=== PATIENT | female | born 1975 | race Caucasian/White ===

== ENCOUNTER 2019-05-03 19:23 | Inpatient (IN) | payer OTHER ==
[~2019-05-03] VITALS: Ht 175.3 cm; Wt 76.7 kg
[2019-05-03 19:51] VITALS: BP 126/73
[2019-05-03 23:10] VITALS: BP 113/78
[2019-05-04] MEDS ORDERED: DOLOGEN CAPLET1 EACH PO (00:38)
[2019-05-04] MEDS ORDERED: PREMARIN0.45 MG (00:41)
--- NOTE | 2019-05-04 02:14 | NUR ---
PT ADMITTED TO ROOM 208 FROM [facility], VSS, PAIN CANTROLLED WITH ICE BAG AND PAIN MEDS, SPOUSE AT BEDSIDE OFFERING SUPPORT, PLAN TO CON'T WITH ANTIBIOTICS, SCDS PLACED, WILL CON'T TO MONITOR PERPPOC.
[2019-05-04 03:52] VITALS: BP 96/58
[2019-05-04 05:21] LABS: HEMATOCRIT 32.1 % (37.0-47.0); HEMOGLOBIN 10.7 gm/dL (12.0-15.0); MCH 30.8 pg (26.0-34.0); MCHC 33.3 g/dL (28.0-37.0); MCV 92.3 fL (80.0-100.0); RBC 3.47 mil/uL (4.20-5.00); RDW 12.2 % (10.5-14.5); WBC 16.8 thou/uL (4.0-11.0)
[2019-05-04 05:49] LABS: CALCIUM 8.6 mg/dL (8.5-10.1); CREATININE 0.8 mg/dL (0.6-1.0); POTASSIUM 3.3 mmol/L (3.5-5.1)
[2019-05-04 08:15] VITALS: BP 100/72
--- NOTE | 2019-05-04 12:43 | NUR ---
Chart reviewed and case discussed with the care team. Pt's spouse is here visiting this am. He is an employee here and is currently home on medical leave as well. He indicates that the pt was transfered from [facility]. She is being treated for pneumonia and has breast ca (currently in tx). The pt is up walking in the hallway with o2 today. Care team to work on weaning o2 as able. Likely dc to home with outpt f/u in 2-3 days. The pt lives at home with her spouse and they have 6 children ages 4 to 25. No cm interventions indicated at this time. Will remain available should dc needs arise. Support provided.
--- NOTE | 2019-05-04 15:42 | NUR ---
RECEIVED PT'S CARE AROUND 0735; PT. ON BED; AXO4; DURING ASSESSMENT C/O PAIN OVER CHEST; 02/01; PRN PAIN MEDICATION GIVEN WITH AM MEDICATIONS; VS WNL; PAIN RE-ASSESSMENT PT. ST. 01/02; CALM; REQUESTING TO REST; POTASSIUM LOW; PHYSICIAN NOTIFIED; ORDERS RECEIVED; C/O NAUSEA; PRN MEDICATION GIVEN; DURING RE-ASSESSSMENT PT. ST. NO DECREASE NAUSEA; C/O PAIN OVER CHEST; 02/01 PRN PAIN MEDICATION GIVEN; RE-ASSESMENT PT. RESTING WITH EYES CLOSED; AT 1540 PT. AWAKE; EDUCATED ABOUT PAIN MANAGEMENT; EDUCATED ABOUT DRINKING WATER; NOT HOLDING URINE; ST. UNDERSTANDING; ASSESSMENT CHARGED; FOLLOWING POC; WILL PASS ON REPORT.
[2019-05-04 16:07] VITALS: BP 126/76
[2019-05-04 18:47] LABS: CALCIUM 8.8 mg/dL (8.5-10.1); CREATININE 0.7 mg/dL (0.6-1.0); MAGNESIUM 2.1 mg/dL (1.8-2.4); POTASSIUM 3.7 mmol/L (3.5-5.1)
[2019-05-04 19:03] LABS: URINE BLOOD 3+ (Negative); URINE CLARITY CLEAR; URINE COLOR YELLOW; URINE GLUCOSE-RANDOM* NEGATIVE (Negative); URINE KETONES TRACE (Negative); URINE LEUKOCYTES-REFLEX TRACE (Negative); URINE PROTEIN (DIPSTICK) 3+ (Negative)
[2019-05-04 19:04] LABS: ICTOTEST (BILI CONFIRMATORY) Negative (Negative); URINE BILIRUBIN NEGATIVE (Negative); URINE NITRITE-REFLEX POSITIVE (Negative)
[2019-05-04 19:06] LABS: CASTS None Seen /LPF (None Seen); CRYSTALS None Seen /LPF (None Seen); SQUAMOUS 0-3 Few /LPF (0-3); URINE RBC >20 Many /HPF (0-2); URINE WBC-REFLEX 6-15 Few /HPF (0-5)
[2019-05-04 20:00] VITALS: BP 113/83
[2019-05-05 00:48] VITALS: BP 105/70
[2019-05-05 02:03] LABS: BE(vivo) 1.1 mmol/L (-2 to +3); HCO3 24.6 mmol/L (22.0-26.0); PCO2 35.4 mmHg (35.0-45.0); PO2 58.9 mmHg (80.0-100.0); sO2 92.1 % (92.0-98.0)
--- NOTE | 2019-05-05 03:01 | NUR ---
PT ALERT AND ORIENTED. PRESENTS WITH A MILD FEVER AT 1999. TYLENOL GIVEN. RECHECK TEMP 98.9. VOIDING TO BATHROOM. ANOTHER UA COLLECTED. COMPAZINE GIVEN FOR NAUSEA. PT APPEARED COMFORTABLE AT THIS TIME. AT AROUND 0100, PT WAS AWAKENED WITH A DRY COUGH AND FLUSHED SKILL. PT ALSO PRESENTED INCREASE WORK OF BREATHING , RESPIRATIONS 32. O2 SATS IN 80S WITH O2 4L NC. BUMPED O2 TO 6L NC, O2 SATS REMAINED IN 80S. RT NOTIFIED. NEBULIZER TREATMENT DONE. PT PUT ON , HIGH FLOW NC AT 10L. O2 SATS IN LOWER 90S. PT ALSO WAS HAVING FEVER AT THIS TIME, TEMP 100.5. NORCO GIVEN, RECHECK TEMP AFTER 1HR 98.9. WATCH CRYSTAL MOLDER ELIZABETH NOTIFIED ABOUT PT CHANGE IN CONDITION. ABGs ORDERED. PT WAS PUT ON COMFORT FLEX HIGH FLOW OXYGEN AT 35L/MIN, FIO2 40%. PT SATS IMPROVED TO SUSTAINED 94% OXYGEN. PT CURRENTLY APPEAR STABLE, STATES, "I FEEL BETTER". WILL CONTINUE MONITORING VITALS AND O2, SATS, TEMP AND FOLLOW PLAN OF CARE.
[2019-05-05 03:20] VITALS: BP 111/72
[2019-05-05 05:33] LABS: HEMATOCRIT 34.7 % (37.0-47.0); HEMOGLOBIN 11.5 gm/dL (12.0-15.0); MCH 30.7 pg (26.0-34.0); MCHC 33.1 g/dL (28.0-37.0); MCV 92.7 fL (80.0-100.0); RBC 3.75 mil/uL (4.20-5.00); RDW 12.5 % (10.5-14.5); WBC 11.7 thou/uL (4.0-11.0)
[2019-05-05 05:40] LABS: CALCIUM 8.2 mg/dL (8.5-10.1); CREATININE 0.7 mg/dL (0.6-1.0); POTASSIUM 4.4 mmol/L (3.5-5.1)
--- NOTE | 2019-05-05 07:22 | HC ---
[facility] [place] [address] CONSULTATION Name: NOEMY APARICIO Room #: 201-P [facility] IN M.R.#: [id number] Admission: 05/03/19 Attend Phys: Mikel Hernandez MD Discharge: Date of : 79 Report #: [id number] THIS REPORT FOR: //name// CC: Mikel RIOS MD [facility] physician/PCP Mario Alberto Willis MD DATE OF SERVICE: 05/04/2019 REQUESTING PHYSICIAN: Hadley Willis M.D. REASON FOR CONSULTATION: History of breast cancer. HISTORY OF PRESENT ILLNESS: The patient is a very pleasant 43-year-old female who I met this summer on 02/17. At that time, she was known to have a triple negative breast cancer that on imaging was thought to be around 2.3 cm. She subsequently underwent a lumpectomy and axillary node sampling, I believe, on about 03/07. The patient reports the final tumor is 1.8 cm and node negative. When I had previously seen her, she had declined interest in traditional adjuvant chemotherapy and radiation therapy and instead wanted to go with alternative therapy, saw a practitioner out in [place] and began high dose IV vitamin C about 2 weeks ago. The patient reports a febrile illness beginning last Wednesday or about 6 days ago. This was, I believe, at 101 or 102. On the next day, Wednesday, she had muscle cramping in many different joints and aches in muscles. Then on Wednesday or about 2 or 3 days ago, started having a cough, mostly nonproductive, but enough to cause some muscle pains. She has maybe felt like her chest was tight, does not quite have pleurisy, but does have some mild pain. No definite wheezing. She denies any headache other than related to coughing, any mouth sores, any trouble swallowing, any skin rash, any arm or leg swelling. She feels like her from her lumpectomy, her right breast is feeling much better. She does have a few sharp shooting pains. Also, has some discomfort in the axilla. No dysuria. At the outside hospital, they did a chest x-ray, does have some bilateral infiltrates. Her white count was elevated to about 12. A UA there had both squamous white cells and some bacteria. APTT was slightly elevated at 38.6. They began her on Zithromax, ceftriaxone, methylprednisolone and benzonatate. They also tested her influenza A and B tests, were negative. Also, note her chemistries were normal with normal liver function test. SOCIAL HISTORY: The patient is a homemaker. She has children at home that have all been healthy. Her is a physician's assistant boys track coach for cardiothoracic surgeon at [employer]. He has been healthy, though he did have sternal surgery [address] [address] CONSULTATION Name: NOEMY APARICIO Room #: 201-P ADM IN M.R.#: [id number] Admission: 05/03/19 Attend Phys: Mikel Hernandez MD Discharge: Date of : 79 Report #: [id number] repair about 1 or 2 weeks ago. PHYSICAL EXAMINATION: VITAL SIGNS: Height is 5 feet 9 inches or 175.3 cm, weight 170.9 pounds or 77.5 kilograms, O2 sat on rest is 92%, blood pressure 96/58, respirations 17; pulse 98, temperature 97.5 orally. She reports really no fever since yesterday. MOOD: She is alert and pleasant. NEUROLOGIC: Face is symmetrical. She is moving all extremities. LUNGS: Have some soft rhonchi, not really wheezes, just some central rhonchi, especially worse when she takes a deep breath. There may be a very slight rub, but it may be more of rhonchi sound. No wheezing. No stridor. HEART: Appears regular rate. LYMPHATICS: No enlarged lymph nodes. BREASTS: Implants in place. She has healed very well from her surgery in the circumareolar superior portion of the right breast. Axillary region also looks like it is healed very well. ABDOMEN: Soft. No masses, nontender. EXTREMITIES: Without clubbing, cyanosis or edema. She has red toe nail kazakh. LABORATORY DATA: Lab today shows a potassium of 3.3. Chemistries at other hospital normal, none here. White count 16.8; hemoglobin 10.7, at the other hospital was around 12; platelets 353. MEDICATIONS: Here at the hospital include azithromycin daily; ceftriaxone daily; guaifenesin 600 b.i.d.; lorazepam, I added 0.5 q.i.d. p.r.n., she was on this at home; ipratropium and albuterol 3 mL respiratory therapy q. 4; dextromethorphan 60 b.i.d. as needed; hydrocodone as needed; Tylenol as needed; MiraLax as needed; Zofran as needed. ASSESSMENT AND PLAN: 1. History of stage 1, triple negative, 1.8 cm, right-sided, lymph node negative, breast cancer, status post lumpectomy 03/07/2019; declined traditional adjuvant chemotherapy and radiation therapy with myself and Dr. Zuhair Rios, looks like she is healing very well. No signs of recurrence. She began nontraditional high dose IV vitamin C last week or 2 weeks ago. 2. Febrile illness with myalgias and cough, unclear etiology, may be slightly better, may be resolving viral or could be bacterial. Await blood cultures. We will repeat a UA to see if this one has bacteria and squamous cells. Continue Zithromax and ceftriaxone for now. 3. Cough. Continue guaifenesin and dextromethorphan. 4. Anxiety at home and muscle spasms here. We will add back lorazepam 0.5 q.i.d. p.r.n. We will follow with you. [facility] [address] [place] [address] CONSULTATION Name: APARICIONOEMY Room #: 201-P [facility] IN M.R.#: [id number] Admission: 05/03/19 Attend Phys: Mikel Hernandez MD Discharge: Date of : 79 Report #: [id number] 5. Question of urinary tract infection. I am wondering whether it might have been a bad catch as the patient was asymptomatic. <ELECTRONICALLY SIGNED> By: Rohan Khan MD 05/05/19 0722 [id number] 0103 Rohan Khan MD /nt
[2019-05-05 07:53] VITALS: BP 126/80
--- NOTE | 2019-05-05 08:03 | EKG ---
[address] [place] [address] ELECTROCARDIOGRAM REPORT Name: NOEMY APARICIO Room #: 201-P ADM IN M.R.#: [id number] Admission: 05/03/19 Attend Phys: Mikel Hernandez MD Discharge: Date of : 79 Report #: [id number] THIS REPORT FOR: //name// [facility] Test Date: 2019-05-04 Test Time: 19:36:36 Pat Name: NOEMY APARICIO Department: Room: 201 Gender: F [employer] Officer: Rony DIGGS : 1975 Requested By: Montana Ramirez Order Number: [id number] MD: Sahil Stevens Measurements Intervals [place] Rate: 100 P: 20 IN: 141 QRS: 35 QRSD: 87 T: -3 QT: 330 QTc: 426 Interpretive Statements Sinus tachycardia Borderline T abnormalities, anterior leads No previous ECG available for comparison Electronically Signed On 05-05-2019 8:03:11 CDT by Sahil Stevens [email or web address] <ELECTRONICALLY SIGNED> By: Sahil Stevens MD, [facility] 05/05/19 08 1936 35 Sahil Stevens MD, FACC /EPI
--- NOTE | 2019-05-05 11:44 | 2DMMODE ---
[facility] [place] [address] 2 D/M-MODE ECHOCARDIOGRAM Name: MARKUSNOEMY M Room #: 201-P [facility] IN .R.#: [id number] Admission: 05/03/19 Attend Phys: Mikel Hernandez MD Discharge: Date of : 79 Report #: [id number] THIS REPORT FOR: //name// APPROVED REPORT Study performed: 05/05/2019 10:51:26 EXAM: Comprehensive 2D, Doppler, and color-flow Echocardiogram Patient Location: Bedside Room #: 201 Status: routine BSA: 1.93 HR: 105 bpm BP: 126/80 mmHg Rhythm: Tachycardia Other Information Study Quality: Good Indications Congestive Heart Failure Dyspnea 2D Dimensions RVDd: 37.60 mm IVSd: 9.39 (7-11mm) LVOT Diam: 20.11 (18-24mm) LVDd: 51.34 mm PWd: 8.86 (7-11mm) Ascending Ao: 31.65 (22-36mm) LVDs: 37.92 (25-40mm) Aortic Root: 31.29 mm Volumes Left Atrial Volume (Systole) Single Plane 4CH: 38.06 mL Single Plane 2CH: 40.20 mL LA ESV Index: 24.00 mL/m2 Aortic Valve AoV Peak Ignacio.: 1.18 m/s AO Peak Gr.: 5.52 mmHg LVOT Max P.01 mmHg LVOT Max V: 0.87 m/s ROSI Vmax: 2.34 cm2 Mitral Valve E/A Ratio: 1.3 MV Decel. Time: 77.90 ms [facility] [address] [place] [address] 2 D/M-MODE ECHOCARDIOGRAM Name: NOEMY APARICIO Room #: 201-P [facility] IN ..#: [id number] Admission: 05/03/19 Attend Phys: Mikel Hernandez MD Discharge: Date of : 79 Report #: [id number] MV E Max Igancio.: 0.81 m/s MV A Ignacio.: 0.61 m/s MV PHT: 22.59 ms IVRT: 46.14 ms Pulmonary Valve PV Peak Ignacio.: 0.92 m/s PV Peak Gr.: 3.41 mmHg Pulmonary Vein P Vein S: 0.59 m/s P Vein D: 0.51 m/s P Vein S/D Ratio: 1.16 Tricuspid Valve TR Peak Ignacio.: 2.65 m/s RAP Estimate: 5.00 mmHg TR Peak Gr.: 28.13 mmHg PA Pressure: 33.00 mmHg Left Ventricle The left ventricle is normal size. There is normal LV segmental wall motion. There is normal left ventricular wall thickness. Left ventricular systolic function is normal. LVEF is 55%. The left ventricular diastolic function is normal. Right Ventricle The right ventricle is normal size. The right ventricular systolic function is normal. Atria The left atrium size is normal. The right atrium size is normal. Aortic Valve The aortic valve is normal in structure. No aortic regurgitation is present. There is no aortic valvular stenosis. Mitral Valve The mitral valve is normal in structure. Mild to moderate mitral regurgitation. Tricuspid Valve The tricuspid valve is normal in structure. Mild tricuspid regurgitation. Estimated PAP is 30-35mmHg. Pulmonic Valve The pulmonary valve is normal in structure. Trace pulmonic [facility] [address] [place] [address] 2 D/M-MODE ECHOCARDIOGRAM Name: MARKUSNOEMY M Room #: 201-P [facility] IN M.R.#: [id number] Admission: 05/03/19 Attend Phys: Mikel Hernandez MD Discharge: Date of : 79 Report #: [id number] regurgitation. Great Vessels The aortic root is normal in size. The ascending aorta is normal in size. IVC is normal in size and collapses >50% with inspiration. Pericardium There is no pericardial effusion. <Conclusion> The left ventricle is normal size. There is normal left ventricular wall thickness. Left ventricular systolic function is normal. The left ventricular diastolic function is normal. The right ventricle is normal size. The left atrium size is normal. The aortic valve is normal in structure. Mild to moderate mitral regurgitation. Mild tricuspid regurgitation. Estimated PAP is 30-35mmHg. <ELECTRONICALLY SIGNED> By: Galen Michael MD 05/05/19 1144 1144 1144 Galen Michael MD /INF
--- NOTE | 2019-05-05 11:53 | NUR ---
SW reviewed chart and spoke with attending physician. Pt remains on IV meds. No weekend discharge planned. Plan is for pt to discharge home when medically stable. MARIO is following to assist as needed with discharge planning.
--- NOTE | 2019-05-05 12:00 | NUR ---
AAOX4. CALM, PLEASANT. AT BEDSIDE. FEBRILE, TEMP 101.8. NORCO GIVEN (CONTAINS TYLENOL); TEMP DOWN TO 98.5. SR/ST PER TELE. UNPRODUCTIVE COUGH PERSISTS. WILL CONTINUE FREQUENT, CLOSE FOLLOWING.
[2019-05-05 15:19] VITALS: BP 117/70
--- NOTE | 2019-05-05 19:36 | NUR ---
ASSUMED CARE AT 1300, SHIFT ASSESSMENT DONE, MEDS GIVEN, VSS. REPORTED PAIN, PRN PAIN MEDS GIVEN, REPORTED ANXIETY, LORAZEPAM GIVEN. SNR ON TELE. ON HIGH FLOW NASAL CANUALR, 50% FiO2, ON 35L, SATURATING BETWEEN 90-98%. WILL CONTINUE TO ASSESS AND ASSIST WITH ADLs NEEDED.
[2019-05-05 21:04] VITALS: BP 119/68
[2019-05-06] VITALS (35 sets, daily range): BP systolic 90–128; BP diastolic 52–83
--- NOTE | 2019-05-06 05:25 | NUR ---
ASSUME CARE 1900. RECURRENT FEVERS AND INCREASE O2 DEMAND NOTED THROUGHT THE NIGHT. TOLERATED BIPAP FOR ABOUT 5-6 HOURS AND WENT BACK ON OPTIFLOW AT ABOUT 0400AM THIS MORNING. aT START OF SHIFT, PT WAS 50% FIO2 AT 35L WITH SATS AT MID 90s. OPTIFLOW INCREASED FROM 50% FIO2 TO 80% FIO2 WITH SATS BETWEEN 92-94 PERCENT AT 50L. OXYGEN DEMAND SEEMS TO BE INCREASING , HOWEVER, PATIENT SATS HAVE BEEN STABLE AT 92-93% AND IS RESTING MORE NOW WITH THE HELP OF ATIVAN. WILL CONTINUE TO MONITOR OXYGEN SATS FOR ANY DROP AND FOLLOW WITH POC
[2019-05-06 06:30] LABS: HEMATOCRIT 34.6 % (37.0-47.0); HEMOGLOBIN 11.5 gm/dL (12.0-15.0); MCH 30.7 pg (26.0-34.0); MCHC 33.3 g/dL (28.0-37.0); MCV 92.2 fL (80.0-100.0); RBC 3.76 mil/uL (4.20-5.00); RDW 12.3 % (10.5-14.5); WBC 10.8 thou/uL (4.0-11.0)
[2019-05-06 06:45] LABS: CALCIUM 8.6 mg/dL (8.5-10.1); CREATININE 0.6 mg/dL (0.6-1.0); POTASSIUM 3.7 mmol/L (3.5-5.1)
[2019-05-06 06:49] LABS: CALCIUM 8.3 mg/dL (8.5-10.1); CREATININE 0.6 mg/dL (0.6-1.0)
[2019-05-06 06:50] LABS: POTASSIUM 4.7 mmol/L (3.5-5.1)
--- NOTE | 2019-05-06 14:30 | NUR ---
OXYGENATION STILL AN ISSUE, ESPECIALLY WHEN PATIENT SLEEPS. SHE IS BECOMING EXHAUSTED. DOWN FOR CHEST CT TODAY. SR/ST PER TELE. TRANSFERRING TO ICU, REPORT CALLED TO JOVANY VILLASEÑOR.
--- NOTE | 2019-05-06 19:33 | NUR ---
1500 PT TRANSFERRED FROM CCU TO ICU RM 239, PT ON OPTIFLOW 50L AT 80%FIO2, PT ALERT AND AWKE, DISCUSSED BRONCHOSCOPY PLANS WITH , DR BROOKS ORDER TO SET UP EQUIPMENT FOR PROCEEDURE. 1700 PT GIVEN SEDATION ORDERS PER DR BROOKS, TOLERATED BRONCHOSCOPY FAIRLY WELL, A LOT OF COUGHING, SPO2 REMAIN STABLE DURING PROCEEDURE. PLACED ON BIPAP POST BRONCH, PRECIDEX ORDERS RECEIVED. 1745 PRECIDEX GTT STARTED, SEE CHARTING, PT MORE RELAXED, RR STILL IN 30'S, WILL MONITOR CLOSELY.
[2019-05-06 21:24] LABS: BE(vivo) 5.3 mmol/L (-2 to +3); HCO3 30.6 mmol/L (22.0-26.0); PCO2 47.2 mmHg (35.0-45.0); PO2 235.7 mmHg (80.0-100.0); pH 7.429 (7.360-7.450); sO2 99.5 % (92.0-98.0)
--- NOTE | 2019-05-06 23:22 | NUR ---
VAT CONSULTED FOR A CL PLACEMENT FOR RESP ARREST AND NEED FOR INTUBATION. PT SPOUSE CONSENTED AND IT WAS DISCUSSED WITH HER BEFORE SHE WAS INTUBATED. DIFFICULT INSERTION LINE MALPOSITIONED MULITPLE TIMES BUT FINAL POSITIONING WITH TIP AT THE CAJ PER CXR. TIME OUT WAS PERFORMED AT THE BS WITH RN, US GUIDED ATTEMPT X1 AFTER LINE MALPOSITIONED WITH OTW EXCHANGE. RT IJ ACCESSED WITH 5FRTLPOWERLINE TRIMMED AT 24CM AND INSERTED TO 18CM WITH A BRISK BLOOD RETURN. LINE SECURED WITH STATLOCK AND STERILE DSG PLACED. PT KIM WELL AND LINE RELEASED TO RN FOR USE PER PROTOCOL.
[2019-05-07] VITALS (87 sets, daily range): BP systolic 90–128; BP diastolic 58–87
[2019-05-07 05:34] LABS: HCO3 29.3 mmol/L (22.0-26.0); PCO2 58.2 mmHg (35.0-45.0); PO2 189.9 mmHg (80.0-100.0); sO2 99.2 % (92.0-98.0)
[2019-05-07 06:22] LABS: HEMATOCRIT 30.6 % (37.0-47.0); HEMOGLOBIN 10.3 gm/dL (12.0-15.0); MCH 31.5 pg (26.0-34.0); MCHC 33.8 g/dL (28.0-37.0); MCV 93.1 fL (80.0-100.0); RBC 3.28 mil/uL (4.20-5.00); RDW 12.5 % (10.5-14.5); WBC 11.4 thou/uL (4.0-11.0)
[2019-05-07 06:36] LABS: CALCIUM 6.8 mg/dL (8.5-10.1); CREATININE 0.5 mg/dL (0.6-1.0)
[2019-05-07 06:42] LABS: POTASSIUM 3.6 mmol/L (3.5-5.1)
--- NOTE | 2019-05-07 10:52 | NUR ---
CXR STATES RIJ TOO DEEP WITHDREW ADDITIONAL 3CM. REPEAT CXR ORDERED
--- NOTE | 2019-05-07 11:25 | NUR ---
REPEAT CXR CONFIRMS IJ AT CAJ.
[2019-05-07 12:57] LABS: ALBUMIN 1.8 g/dL (3.4-5.0); CALCIUM 7.2 mg/dL (8.5-10.1); CREATININE 0.5 mg/dL (0.6-1.0); PHOSPHORUS 4.7 mg/dL (2.5-4.9); TOTAL BILIRUBIN 0.3 mg/dL (<0.1-1.0); TOTAL PROTEIN 5.4 g/dL (6.4-8.2)
[2019-05-07 13:01] LABS: POTASSIUM 3.6 mmol/L (3.5-5.1)
--- NOTE | 2019-05-07 21:01 | NUR ---
PATIENT RESTING ON THE VENT TODAY, FIO2 DOWN TO 40% INITIALLY THIS AM AND PEEP DECREASED TO 8CM THIS AFTERNOON. SEDATIONS TAPPERED TO 50 MCG AND FENTENYL ADDED FOR PAIN MANAGEMENT. PATIENT COUGHING MORE AND REQUIRING MORE FREQUENT ETT SUCTIONING FOR MODERATE AMT OF THICK BEIGE SECRETIONS. SEDATION TITRATED UP FOR COMFORT AND FENTANYL ALSO REPEATED. TEMP INCREASED TO 100 AT 1600 ASSESSMENT AND TYLENOL GIVEN WITH REPEAT TEMP DECREASING. O2 SAT REMANINS 97 TO 98. MONITOR SINUS TACH 110 TO 120 WITH AGGITATION. FAMILY UPDATED TO THE POC AND REASSURANCE GIVEN.
[2019-05-08] VITALS (25 sets, daily range): BP systolic 96–162; BP diastolic 70–90
[2019-05-08 05:49] LABS: BE(vivo) 3.8 mmol/L (-2 to +3); HCO3 29.1 mmol/L (22.0-26.0); PCO2 46.7 mmHg (35.0-45.0); PO2 97.9 mmHg (80.0-100.0); pH 7.412 (7.360-7.450); sO2 97.5 % (92.0-98.0)
[2019-05-08 06:21] LABS: HEMATOCRIT 31.6 % (37.0-47.0); HEMOGLOBIN 10.4 gm/dL (12.0-15.0); MCH 30.8 pg (26.0-34.0); MCV 93.4 fL (80.0-100.0); RBC 3.38 mil/uL (4.20-5.00); RDW 12.4 % (10.5-14.5); WBC 22.1 thou/uL (4.0-11.0)
[2019-05-08 06:43] LABS: ALBUMIN 1.9 g/dL (3.4-5.0); CALCIUM 8.1 mg/dL (8.5-10.1); CREATININE 0.5 mg/dL (0.6-1.0); MAGNESIUM 2.4 mg/dL (1.8-2.4); PHOSPHORUS 3.3 mg/dL (2.5-4.9); POTASSIUM 3.8 mmol/L (3.5-5.1); TOTAL BILIRUBIN 0.1 mg/dL (<0.1-1.0); TOTAL PROTEIN 5.7 g/dL (6.4-8.2)
--- NOTE | 2019-05-08 07:37 | NUR ---
Pt's family was at the bedside at the start of the shift and were trying to provided cares, ie fluffing pillows, elevating BLE, and was even at one point trying to reposition the ETT/bite block in her mouth. RT came along and made further adjustments. Pt's family was advised to try and get some rest and did finally leave the room around midnight. Pt was bathed and her hair was combed out, her skin is intact.
--- NOTE | 2019-05-08 10:47 | NUR ---
Nutrition: Pt with high propofol needs providing 844 kcals from lipids. Use of Jevity 1.5 formula will overfeed pt. REC change to Vital HP at 45 mL/hr with current propofol demands.
--- NOTE | 2019-05-08 12:15 | NUR ---
PT REQUIRED INTUBATION 05/06 AND NOW IN ICU. HAS CHEST TUBE, TUBE FEEDING, SEDATION GTTS. ABLE TO FOLLOW COMMANDS. SPOUSE AT BEDSIDE THIS AM. PT WITH RECENT BREAST CANCER DX S/P LUMPECTOMY AND DR. LANDA FOLLOWING.
--- NOTE | 2019-05-08 16:08 | NUR ---
PATIENT INTERMITTENTLY RESTLESS WITH SEDATION IT WAS. DR. MELENDEZ CHANGED SEDATION TO ADD FENTANYL AND PRECEDEX AND TRY TO WEAN OFF PROPOFOL. SEE GTT TITRATIONS. PATIENT APPEARS MORE COMFORTABLE AND CALM AT THIS TIME. WHEN SEDATION LIGHTENED UP, SHE BECOMES TACHYPNEIC, TACHYCARDIC, WITH STRONG GAG/COUGH WHICH TRIGGERS THE VENTILATOR TO ALARM AND SHE BECOMES OUT OF SYNCH WITH THE VENTILATOR. FAMILY UPDATED ON PLAN OF CARE. PATIENT PROGRESSING TOWARDS PLAN OF CARE WITH VENTILATION.
--- NOTE | 2019-05-08 19:03 | HC ---
[facility] [place] [address] CONSULTATION Name: NOEMY APARICIO Room #: 239-P ADM IN M.R.#: [id number] Admission: 05/03/19 Attend Phys: Mikel Hernandez MD Discharge: Date of : 79 Report #: [id number] THIS REPORT FOR: //name// CC: Mikel Hernandez [facility] physician/PCP DATE OF SERVICE: 05/05/2019 INFECTIOUS DISEASE CONSULTATION REASON FOR CONSULTATION: I was asked to evaluate concerning bilateral pulmonary infiltrates in the setting of breast cancer. HISTORY OF PRESENT ILLNESS: The patient is a 43-year-old diagnosed with right breast cancer several months ago. She underwent lumpectomy. Lymph nodes were reported negative. She elected for no adjuvant chemotherapy. She is now on homeopathic vitamin C high-dose treatments. She has been on this for about a month. Plan on a 3-month course where she receives vitamin C twice a week. Last week, she developed fever, chills, myalgias, arthralgias, some nausea and profound fatigue. She had difficulty getting out of bed. She had some palpitations and became lightheaded, therefore went to the Emergency Room at [facility], initially treated for pneumonia. Due to insurance issues, she was transferred to [facility] for further care. She has had a cough productive of small amount of sputum without hemoptysis. No pleuritic chest pain. She has had progressive shortness of breath and yesterday required placement of high-flow oxygen. She has had pneumonia one time when she was a baby. Otherwise, no other chronic lung conditions, recurring bronchitis or asthma. She is a nonsmoker. Still has some tenderness to her right breast post-lumpectomy. No drainage from her incision. REVIEW OF SYSTEMS: Full 10-point review of systems was negative other than what has been described above. ALLERGIES: BUTORPHANOL. PAST MEDICAL HISTORY: As noted above, otherwise unremarkable. FAMILY HISTORY: Noncontributory. SOCIAL HISTORY: Nonsmoker, no significant alcohol intake. Has 6 children, youngest is 3 years old. She is a homemaker. No tuberculosis exposure. Children have been well, with no respiratory issues. MEDICATIONS: As noted on her MAR, including azithromycin and ceftriaxone in [facility] [address] [place] [address] CONSULTATION Name: NOEMY APARICIO Room #: 239-P [facility] IN .R.#: [id number] Admission: 05/03/19 Attend Phys: Mikel Hernandez MD Discharge: Date of : 79 Report #: [id number] addition to levalbuterol inhaler, acidophilus and guaifenesin. PHYSICAL EXAMINATION: VITAL SIGNS: Temperature 101.8 degrees earlier this morning, currently afebrile, pulse 99, respiratory rate 18, blood pressure 117/70. GENERAL: She was alert and cooperative and pleasant, in no acute distress. She was on high-flow nasal cannula oxygen. During my evaluation, there were no coughing episodes. SKIN: Without rash. No palpable adenopathy. EYES: Without scleral icterus. MOUTH: Without mucositis. NECK: Supple, with no thyromegaly or mass. LUNGS: Clear, with no adventitial sounds. HEART: Tachycardic and regular, without murmur, gallop or rub. No JVD of significance. ABDOMEN: Soft, nontender, no hepatosplenomegaly or mass. No CVA tenderness. GENITORECTAL: Not performed. EXTREMITIES: Without clubbing, cyanosis or edema. NEUROLOGIC: Cranial nerves intact. Strength in upper and lower extremities was normal. Sensation in upper and lower extremities normal. LABORATORY STUDIES: Echocardiogram, normal EF and valves. Legionella and strep pneumo antigens negative. Chest x-ray, bilateral interstitial changes without consolidation. Hemoglobin 11.5, WBC 11.7, platelet count 369,000. Sodium 139, potassium 4.4, bicarbonate 23, creatinine 0.7. Procalcitonin 0.2. Urinalysis, few wbc's, many rbc's, moderate bacteria, 3+ protein, 3+ blood. BNP 1581. Troponin negative. IMPRESSION: A 43-year-old with recent diagnosis of right breast cancer, undergoing IV vitamin C infusions, now with bilateral pulmonary infiltrates and respiratory failure requiring high flow oxygen. Etiology of the infiltrate is yet to be determined, whether this is a typical pneumonia versus congestive heart failure. I doubt allergic reaction to her vitamin C. I doubt lymphangitic spread at this point. She has no underlying chronic lung disease. It is notable that her BNP was elevated. Her echocardiogram, however, was within normal limits. RECOMMENDATIONS: We will continue with broad antibiotic coverage. Obtain viral respiratory panel and continue broad antibiotic coverage. Would agree with continued trial of diuresis. <ELECTRONICALLY SIGNED> By: Poncho Martínez MD 05/08/19 [id number] 0704 Poncho Martínez MD /nt
--- NOTE | 2019-05-08 19:27 | NUR ---
PATIENT MORE FREQUENT COUGH TONIGHT. PINK FROTHY SPUTUM NOW PRESENT PER RT REPORT. VOLUME STATUS NOTED TO DR. MELENDEZ. ORDER RECEIVED FOR LASIX IV AND DECREASE MAINTANENCE IV FLUID.
[2019-05-09] VITALS (24 sets, daily range): BP systolic 117–160; BP diastolic 67–90
[2019-05-09 05:53] LABS: CALCIUM 8.1 mg/dL (8.5-10.1); CREATININE 0.7 mg/dL (0.6-1.0); MAGNESIUM 2.5 mg/dL (1.8-2.4); PHOSPHORUS 3.9 mg/dL (2.5-4.9)
--- NOTE | 2019-05-09 08:09 | NUR ---
PATIENT ON MODERATE SEDATION, PLAN TO WEAN OF PROPOFOL DUE TO INCREASED TRYGLICERIDES. PROPOFOL PAUSED AT 0300 FOR 5 MINUTES, PATIENT DID NOT TOLERATE WELL, LEANING UP OFF THE BED AND IN DISTRESS. PROPOFOL RESTARTED AND PATIENT RESTED COMFORTABLY. PLAN TO ATTEMPT WEANING DURING DAY SHIFT PER RN. SPOKE WITH DR. LANDA, NO CURRENT PLAN FROM HIS STANDPOINT. PLAN OF CARE DISCUSSED WITH FAMILY OVER NIGHT, VERBALIZED UNDERSTANDING. NO SIGNS OF ACUTE DISTRESS NOTED AT THIS TIME. WILL CONTINUE TO MONITOR.
[2019-05-09 11:04] LABS: BE(vivo) 8.6 mmol/L (-2 to +3); PCO2 50.6 mmHg (35.0-45.0); pH 7.445 (7.360-7.450); sO2 98.6 % (92.0-98.0)
[2019-05-09 16:49] LABS: BE(vivo) 8.2 mmol/L (-2 to +3); HCO3 32.9 mmol/L (22.0-26.0); PCO2 46.2 mmHg (35.0-45.0); PO2 97.7 mmHg (80.0-100.0); sO2 97.7 % (92.0-98.0)
--- NOTE | 2019-05-09 19:51 | NUR ---
ASSUMED CARE @ 0700 05/09/19, FLUIDS CHANGED PER SODIUM LEVELS, PEEP ADJUSTED PER DR MELENDEZ, ABG DRAWN AFTER, NO CRITICALS NOTED. FAMILY AT THE BEDSIDE DURING THIS SHIFT. PLAN OF CARE- CONT TO MONITOR.
[2019-05-10] VITALS (24 sets, daily range): BP systolic 88–158; BP diastolic 52–91
[2019-05-10 04:16] LABS: CALCIUM 8.1 mg/dL (8.5-10.1); CREATININE 0.6 mg/dL (0.6-1.0); MAGNESIUM 2.3 mg/dL (1.8-2.4); PHOSPHORUS 3.5 mg/dL (2.5-4.9); POTASSIUM 3.5 mmol/L (3.5-5.1)
[2019-05-10 04:57] LABS: HEMATOCRIT 34.9 % (37.0-47.0); HEMOGLOBIN 11.3 gm/dL (12.0-15.0); MCH 29.9 pg (26.0-34.0); MCHC 32.4 g/dL (28.0-37.0); MCV 92.2 fL (80.0-100.0); RBC 3.78 mil/uL (4.20-5.00); RDW 12.1 % (10.5-14.5); WBC 17.2 thou/uL (4.0-11.0)
--- NOTE | 2019-05-10 06:52 | NUR ---
PATIENT REMAINS INTUBATED AND SEDATED WITH PRECEDEX, FENTANYL, AND VERSED. FAMILY UPDATED ON PLAN OF CARE. NO ACUTE EVENTS OCCURRED DURING THIS SHIFT AND HOURLY ROUNDING COMPLETED. VS REMAINED STABLE.
[2019-05-10 15:11] LABS: BE(vivo) 7.9 mmol/L (-2 to +3); HCO3 31.4 mmol/L (22.0-26.0); PCO2 39.8 mmHg (35.0-45.0); PO2 96.2 mmHg (80.0-100.0); pH 7.515 (7.360-7.450); sO2 97.9 % (92.0-98.0)
--- NOTE | 2019-05-10 17:15 | NUR ---
ASSUMED CARE @ 0700 05/10/19, PT ABLE TO TOLERATE CPAP FOR 2 HRS 30 MINS, PT EXTUBATED 1550, OG AND RESTRAINTS DC'D AT THIS TIME, PT PLACED ON FACE- SHIELD 50%, VSS. BEAN AT BEDSIDE, WILL FOLLOW CARE-PLAN.
--- NOTE | 2019-05-10 22:34 | NUR ---
1929 STARTED THE 500ML BOLUS ORDERED FOR LACTATE OF 3.26. WILL RECHECK LACTIC ACID LEVEL UPON COMPLETION. 2233 RECEIVED LACTIC ACID LEVEL TEST RESULTS. NOTIFIED DR. MELENDEZ THAT THE LACTIC LEVEL IS NOW 3.5. DR. MELENDEZ STATED TO RECHECK IT WITH MORNING LABS.
[2019-05-11] VITALS (21 sets, daily range): BP systolic 106–156; BP diastolic 58–95
[2019-05-11 06:30] LABS: CALCIUM 7.9 mg/dL (8.5-10.1); CREATININE 0.7 mg/dL (0.6-1.0); MAGNESIUM 2.3 mg/dL (1.8-2.4); PHOSPHORUS 2.9 mg/dL (2.5-4.9)
[2019-05-11 06:35] LABS: POTASSIUM 2.7 mmol/L (3.5-5.1)
--- NOTE | 2019-05-11 10:03 | NUR ---
PT UP TO CHAIR WITH ASSISTX1, ALL IVS AND TUBES INTACT AFTER TRANSFER. OXYGEN SATURATION REMAINED STABLE, NO COMPLAINTS OF PAIN. TOLERATED ACTIVITY WELL.
[2019-05-11 19:07] LABS: HISTOPLASMA MYCELIAL-ID Negative (Negative)
--- NOTE | 2019-05-11 19:19 | NUR ---
PT A/OX4, VITAL SIGNS REMAINED STABLE, NO COMPLAINTS OF PAIN, FAMILY AT BEDSIDE, BOTH PT AND FAMILY ARE SATISFIED WITH PT PROGRESS. NO NEW QUESTIONS AT THIS TIME. AL OKAY PT TO DOWNGRADE TO CCU STATUS. WILL MONITOR.
[2019-05-12] VITALS (12 sets, daily range): BP systolic 114–152; BP diastolic 68–89
--- NOTE | 2019-05-12 15:59 | NUR ---
EXTUBATED 05/10 AND NOW ON ROOM AIR/2L NC. CHEST TUBE DC 05/11. NOW CC TELE LEVEL OF CARE. POSSIBLE DC HOME THIS WEEKEND.
[2019-05-13] VITALS (8 sets, daily range): BP systolic 104–125; BP diastolic 69–83
[2019-05-13 06:52] LABS: HEMATOCRIT 38.2 % (37.0-47.0); HEMOGLOBIN 12.4 gm/dL (12.0-15.0); MCH 29.8 pg (26.0-34.0); MCHC 32.5 g/dL (28.0-37.0); MCV 91.7 fL (80.0-100.0); RBC 4.17 mil/uL (4.20-5.00); RDW 12.3 % (10.5-14.5); WBC 31.5 thou/uL (4.0-11.0)
[2019-05-13 07:12] LABS: CALCIUM 8.3 mg/dL (8.5-10.1); CREATININE 0.7 mg/dL (0.6-1.0); POTASSIUM 4.1 mmol/L (3.5-5.1)
[2019-05-13] MEDS ORDERED: COLESTID1 GM PO (14:35)
[2019-05-13] MEDS ORDERED: HYDROCODON-ACE1 EAC7 PO (14:36)
[2019-05-13] MEDS ORDERED: TRAZODONE HCL50 MG PO (14:37)
[2019-05-13] MEDS ORDERED: ROBITUSSIN100 MG/53 PO (14:38)
[2019-05-13] MEDS ORDERED: PULMICORT0.5 MG/21 INH (14:38)
[2019-05-13] MEDS ORDERED: FLORANEX GRANU1 EACH PO (14:39)
[2019-05-13] MEDS ORDERED: PREDNISONE 20 M20 MG PO (14:41)
--- NOTE | 2019-05-16 13:07 | PATH ---
[facility] [place] [address] PATHOLOGY RPT PROCEDURE Name: NOEMY APARICIO Room #: 250-P [facility] IN M.R.#: [id number] Admission: 05/03/19 Date of : 79 Discharge: 05/13/19 Report #: [id number] Path Case #: [id number] Note [facility] Accession Number: [id number] TESTS RESULT FLAG UNITS REF RANGE LAB Clinician Provided Cytology Information No. of containers..01 Other (Miscellaneous) Source: RUL BAL DIAGNOSIS: 02 RUL BAL NEGATIVE FOR MALIGNANT EPITHELIAL CELLS. REACTIVE BRONCHIAL CELLS ARE PRESENT. PULMONARY MACROPHAGES (DUST CELLS) ARE PRESENT. PAS SPECIAL STAIN SHOWS NO DEFINITE AMORPHOUS MATERIAL, SEE COMMENT. Comment: Large amorphous globules positve for PAS stain are not identified. Please note specimen may not be eligibility services representative. Histologic examination of a wedge resection may be a more sensitive test if clinically indicated. Clinical correlation is required. Pathologist ICD10: 02 J18.9 Signed out by: Padma Cook MD, Pathologist NPI- [id number] Performed by: Thelma Burgess, Supervisor [employer] ([employer]) Marcell Mccullough, Supervisor [employer] ([employer]) Gross description: 01 5ML, PINK, CLOUDY /LCS 07/25/1840 0000 Local FLAG LEGEND: L-Low Normal,H-High Normal,LL-Alert Low,HH-Alert High <-Panic Low,>-Panic High,A-Abnormal,AA-Critical Abnormal Performed at: 01 [facility] [address] [place] [address] [address] [place] [address] Ash Murcia MD, [address] [address] Padma Cook MD, Specimen Comment: A courtesy copy of this report has been sent to Specimen Comment: [phone]. Specimen Comment: Report sent to [address] [address] PATHOLOGY RPT PROCEDURE Name: MARKUSNOEMY Rony Room #: 250-P [facility] IN M.R.#: [id number] Admission: 05/03/19 Date of : 79 Discharge: 05/13/19 Report #: [id number] Path Case #: [id number] Specimen Comment: A duplicate report has been generated due to demographic updates. Performed at: 01 [facility] [place] [address], [place], [place] [id number] MD Ash Murcia MD Phone: [phone]
== END 2019-05-13 16:25 | disposition home or self-care (01) | DRG 208 ==
LOC: 2N 19:23 → ICU 05-06 15:02
PROVIDERS: Hospitalist; Internal Medicine Hematology & Oncology; Internal Medicine Pulmonary Disease; Nurse Practitioner Family; Pediatrics; Specialist; ADMIT Hospitalist
PROC: 5A1945Z Respiratory Ventilation, 24-96 Consecutive Hours (ICD-10-PCS; principal; 2019-05-06)
PROC: 5A09357 Assistance with Respiratory Ventilation, Less than 24 Consecutive Hours, Continuous Positive Airway Pressure (ICD-10-PCS; 2019-05-06)
PROC: 0BH17EZ Insertion of Endotracheal Airway into Trachea, Via Natural or Artificial Opening (ICD-10-PCS; 2019-05-06)
PROC: 02HV33Z Insertion of Infusion Device into Superior Vena Cava, Percutaneous Approach (ICD-10-PCS; 2019-05-06)
PROC: B548ZZA Ultrasonography of Superior Vena Cava, Guidance (ICD-10-PCS; 2019-05-06)
PROC: 0B9C8ZX Drainage of Right Upper Lung Lobe, Via Natural or Artificial Opening Endoscopic, Diagnostic (ICD-10-PCS; 2019-05-06)
PROC: 0W9930Z Drainage of Right Pleural Cavity with Drainage Device, Percutaneous Approach (ICD-10-PCS; 2019-05-07)
DX: J18.9 Pneumonia, unspecified organism (principal); J96.01 Acute respiratory failure with hypoxia; N39.0 Urinary tract infection, site not specified; J93.9 Pneumothorax, unspecified; E46 Unspecified protein-calorie malnutrition; F41.9 Anxiety disorder, unspecified; D72.829 Elevated white blood cell count, unspecified; T38.0X5A Adverse effect of glucocorticoids and synthetic analogues, initial encounter; Y92.89 Other specified places as the place of occurrence of the external cause; Z88.8 Allergy status to other drugs, medicaments and biological substances; Z85.3 Personal history of malignant neoplasm of breast; Z68.24 Body mass index [BMI] 24.0-24.9, adult; Z23 Encounter for immunization
CPT/HCPCS: 10078; 10081; 10203; 10797

== ENCOUNTER → 2019-05-19 | Outpatient (CLI) | payer OTHER ==
[~2019-05-19] MED LIST: COLESTID1 GM PO; DOLOGEN CAPLET1 EACH PO; FLORANEX GRANU1 EACH PO; HYDROCODON-ACE1 EAC7 PO; PREDNISONE 20 M20 MG PO; PREMARIN0.45 MG; PULMICORT0.5 MG/21 INH; ROBITUSSIN100 MG/53 PO; TRAZODONE HCL50 MG PO
== END ==
LOC: RAD 09:52
DX: R91.8 Other nonspecific abnormal finding of lung field (principal)

== ENCOUNTER → 2019-08-08 | Outpatient (CLI) | payer OTHER | LOC: RAD 10:05 | DX: S27.309A Unspecified injury of lung, unspecified, initial encounter (principal); X58.XXXA Exposure to other specified factors, initial encounter; Y93.89 Activity, other specified; Y92.89 Other specified places as the place of occurrence of the external cause; Y99.8 Other external cause status ==

== ENCOUNTER → 2019-10-27 | Outpatient (CLI) | payer OTHER | LOC: MRI 09:49 | DX: C50.411 Malignant neoplasm of upper-outer quadrant of right female breast (principal) ==

== ENCOUNTER → 2019-11-22 | Outpatient (CLI) | payer OTHER | LOC: MRI 09:05 | DX: C50.411 Malignant neoplasm of upper-outer quadrant of right female breast (principal); N64.89 Other specified disorders of breast ==

== ENCOUNTER 2020-04-22 15:22 | Emergency (ER) | payer OTHER ==
[~2020-04-22] VITALS: Ht 175.3 cm; Wt 81.7 kg
--- NOTE | 2020-04-22 16:19 | EKG ---
[facility] [place] [address] ELECTROCARDIOGRAM REPORT Name: NOEMY APARICIO Room #: PRE [facility]..#: [id number] Admission: Attend Phys: Discharge: Date of : 79 Report #: [id number] THIS REPORT FOR: cc: SADIE Menjivar family physician/PCP SADIE Menjivar family physician/PCP James Menjivar MD [facility] ~ THIS REPORT FOR: //name// [facility] ED Test Date: 2020-04-22 Test Time: 15:32:39 Pat Name: NOEMY APARICIO Department: Room: Gender: F Milling Machinist: CHUCK : 1975 Requested By: Kai Nunn Order Number: [id number] MD: James Menjivar Measurements Intervals [place] Rate: 81 P: 40 MD: 142 QRS: 35 QRSD: 81 T: 10 QT: 380 QTc: 441 Interpretive Statements Sinus rhythm Borderline T abnormalities, anterior leads Compared to ECG 05/04/2019 19:36:36 Sinus tachycardia no longer present T-wave abnormality still present Electronically Signed On 04-22-2020 16:19:05 CDT by James Menjivar [email or web address] <ELECTRONICALLY SIGNED> By: James Menjivar MD, FACC 04/22/20 0019 1532 153 James Menjivar MD, [facility] /EPI
[2020-04-22 16:58] LABS: ABSOLUTE NEUTROPHILS 5.7 thou/uL (1.4-8.2); BASOPHILS 0.5 % (0.0-2.0); EOSINOPHILS 1.1 % (0.0-3.0); HEMATOCRIT 38.4 % (37.0-47.0); HEMOGLOBIN 13.1 gm/dL (12.0-15.0); LYMPHOCYTES 25.2 % (24.0-44.0); MCH 30.7 pg (26.0-34.0); MCHC 34.2 g/dL (28.0-37.0); MCV 89.9 fL (80.0-100.0); MONOCYTES 6.1 % (1.0-8.0); PLATELET COUNT 318 thou/uL (150-400); POLYS 67.1 % (36.0-66.0); RBC 4.27 mil/uL (4.20-5.00); RDW 12.2 % (10.5-14.5); WBC 8.4 thou/uL (4.0-11.0)
[2020-04-22] MEDS ORDERED: DIAZEPAM 10 MG10 M2 PO (17:03)
[2020-04-22 17:12] LABS: ANION GAP 14 mmol/L (7-16); BUN 10 mg/dL (7-18); CALCIUM 8.5 mg/dL (8.5-10.1); CHLORIDE 107 mmol/L (98-107); CO2 21 mmol/L (21-32); CREATININE 0.7 mg/dL (0.6-1.0); GLUCOSE 97 mg/dL (74-106); POTASSIUM 3.2 mmol/L (3.5-5.1); SODIUM 142 mmol/L (136-145)
[2020-04-22 17:19] LABS: ALBUMIN 4.8 g/dL (3.4-5.0); SGOT 13 U/L (15-37); SGPT 16 U/L (30-65); TOTAL BILIRUBIN 0.3 mg/dL (0.2-1.0); TOTAL PROTEIN 6.7 g/dL (6.4-8.2); TROPONIN-I <0.06 ng/mL (<0.06)
[2020-04-22] MEDS ORDERED: CYCLOBENZAPRINE5 MG PO (22:40)
[2020-04-22] MEDS ORDERED: ZOFRAN ODT4 MG PO (22:40)
[2020-04-22] MEDS ORDERED: ULTRAM 50MG TAB50 MG PO (22:41)
[2020-04-22 22:49] VITALS: BP 135/81
== END 2020-04-22 23:23 | disposition home or self-care (01) ==
LOC: ER 15:22
PROVIDERS: Physician Assistant
DX: M94.0 Chondrocostal junction syndrome [Tietze] (principal); Z79.899 Other long term (current) drug therapy; Z88.8 Allergy status to other drugs, medicaments and biological substances

== ENCOUNTER → 2020-05-24 | Outpatient (CLI) | payer OTHER ==
[~2020-05-24] MED LIST changes: +CYCLOBENZAPRINE5 MG PO; +DIAZEPAM 10 MG10 M2 PO; +ULTRAM 50MG TAB50 MG PO; +ZOFRAN ODT4 MG PO
== END ==
LOC: ULTRA 14:12
PROVIDERS: ATTEND Family Medicine
DX: N80.9 Endometriosis, unspecified (principal)

== ENCOUNTER → 2020-05-29 | Outpatient (CLI) | payer OTHER ==
[2020-05-30 01:06] LABS: TESTOSTERONE* 9 ng/dL (8-48)
[2020-05-31 18:06] LABS: FREE TESTOSTERONE 0.5 pg/mL (0.0-4.2)
== END ==
LOC: LAB 15:39
PROVIDERS: ATTEND Obstetrics & Gynecology
DX: N95.1 Menopausal and female climacteric states (principal)

== ENCOUNTER → 2020-06-27 | Outpatient (CLI) | payer OTHER | LOC: MRI 09:06 | PROVIDERS: ATTEND Family Medicine | DX: C50.211 Malignant neoplasm of upper-inner quadrant of right female breast (principal); Z85.3 Personal history of malignant neoplasm of breast ==

== ENCOUNTER → 2020-07-15 | Outpatient (CLI) | payer OTHER | END | disposition home or self-care (01) | LOC: ULTRA 09:07 | PROVIDERS: ATTEND Obstetrics & Gynecology | DX: R10.2 Pelvic and perineal pain (principal); N85.8 Other specified noninflammatory disorders of uterus; Z98.890 Other specified postprocedural states; Z79.899 Other long term (current) drug therapy; Z88.8 Allergy status to other drugs, medicaments and biological substances ==

== ENCOUNTER → 2020-10-08 | Outpatient (CLI) | payer OTHER ==
[2020-10-08 22:06] LABS: T4 (THYROXINE) 6.9 ug/dL (4.5-12.0)
[2020-10-08 23:06] LABS: LUTEINIZING HORMONE (LH) 6.4 mIU/mL (())
[2020-10-09 05:07] LABS: 25-HYDROXY TOTAL 13.4 ng/mL (30.0-100.0)
[2020-10-12 20:06] LABS: FREE TESTOSTERONE 1.4 pg/mL (0.0-4.2)
== END ==
LOC: LAB 12:31
PROVIDERS: ATTEND Obstetrics & Gynecology
DX: N94.6 Dysmenorrhea, unspecified (principal); R10.2 Pelvic and perineal pain

== ENCOUNTER → 2020-11-08 | Outpatient (CLI) | payer OTHER | LOC: MRI 14:13 | PROVIDERS: ATTEND Family Medicine | DX: M47.812 Spondylosis without myelopathy or radiculopathy, cervical region (principal); M47.817 Spondylosis without myelopathy or radiculopathy, lumbosacral region; M47.816 Spondylosis without myelopathy or radiculopathy, lumbar region; D18.09 Hemangioma of other sites ==

== ENCOUNTER → 2020-11-13 | Outpatient (CLI) | payer OTHER | LOC: CAT 10:27 | PROVIDERS: ATTEND Family Medicine | DX: J98.11 Atelectasis (principal); I89.9 Noninfective disorder of lymphatic vessels and lymph nodes, unspecified; Z85.3 Personal history of malignant neoplasm of breast ==

== ENCOUNTER → 2020-11-14 | Outpatient (CLI) | payer OTHER ==
--- NOTE | 2020-11-18 15:07 | PATH ---
[facility] [address] [place] [address] PATHOLOGY RPT PROCEDURE Name: MERRY APARICIO Room #: [facility] M.R.#: [id number] Admission: 11/14/20 Date of : 79 Discharge: Report #: [id number] Path Case #: [id number] [facility] Accession Number: [id number] . 01 Material submitted: . neck - RIGHT SUPRACLAVICULAR NODE BIOPSY. Modifiers: right, SUPRACLAVICULAR . 01 Clinician provided ICD-10: R22.1 . 02 Diagnosis: Lymph node, right clavicular lymph node, needle core biopsy: - POSITIVE FOR MALIGNANCY; METASTATIC POORLY DIFFERENTIATED ADENOCARCINOMA, COMPATIBLE WITH BREAST ORIGIN. (IUV:manohar; 11/18/2020) AZJ 11/18/2020 1454 Local . 02 Comment: Examination shows focal background lymphoid tissue present; however, much of the lymph node parenchyma is effaced by a poorly differentiated malignancy. Multiple properly controlled immunohistochemical stains are performed on block A2. The tumor shows strong membranous reactivity with AE1/AE3 and CK CHARLENE. Nuclear reactivity is identified with GATA3. CD45 (performed to further characterize the neoplastic cells in a tissue architectural context) is reactive within the background lymphocytes. The tumor cells are nonreactive to CD45. The morphology as well as the immunohistochemical stains are compatible with a metastatic adenocarcinoma of breast origin. . Flow cytometric analysis on this sample showed less than 10% of CD45 population detected. No significant lymphoid immunophenotypic abnormalities were detected in the limited study performed. Please see separate report to follow as an addendum (report [id number], [facility]). Please see separate report for details. . Car Driver slide was co-reviewed by Dr. Blanca Garcia who concurs with my diagnosis. Findings of this case are discussed with Dr. Costa Jha at approximately 10:45 a.m. on 11/15/20 and again updated at approximately 12:05 p.m. on 11/18/20. Subsequent to the discussion, ER, MI, HER2/brigitte and PDL1 are ordered based on his request. Clinical history of triple negative breast carcinoma, status post lumpectomy and no chemotherapy was provided as well. . (IUV:radiologist diagnostic; 11/18/2020) . 02 Electronically signed: . Padma Cook MD, Pathologist [address] [address] PATHOLOGY RPT PROCEDURE Name: MERRY APARICIO Room #: REG [facility]ar#: [id number] Admission: 11/14/20 Date of : 79 Discharge: Report #: [id number] Path Case #: [id number] NPI- [id number] . 01 Gross description: . The specimen is received in formalin, labeled "Merry Aparicio, right supraclavicular node biopsy". Received are five needle cores of pale solomon tissue ranging in length from 0.4-1.8 cm, with each measuring 0.1 cm in diameter. The specimen is submitted entirely in cassettes A1 through A3. A portion of the specimen was received in RPMI solution and is forwarded to an outside laboratory for flow cytometry studies. (CAA; 11/14/2020) QAC/QAC 11/14/2020 1650 Local . 02 Pathologist provided ICD-10: C77.3 . 02 CPT . 351959, O45865, J55841 Specimen Comment: A courtesy copy of this report has been sent to [phone] Specimen Comment: Report sent to Performed at: [address], [place], [place] [id number] MD Sherif Amaya MD Phone: [phone] Performed at: [address] [id number] MD Padma Cook MD Phone: [phone]
== END | disposition home or self-care (01) ==
LOC: ULTRA 10:10
PROVIDERS: ATTEND Family Medicine
DX: C77.3 Secondary and unspecified malignant neoplasm of axilla and upper limb lymph nodes (principal); R59.0 Localized enlarged lymph nodes; Z98.890 Other specified postprocedural states; Z79.899 Other long term (current) drug therapy; Z85.3 Personal history of malignant neoplasm of breast; Z88.8 Allergy status to other drugs, medicaments and biological substances

== ENCOUNTER → 2020-12-03 | Outpatient (CLI) | payer OTHER ==
[~2020-12-03] VITALS: Ht 175.3 cm; Wt 86.2 kg
[~2020-12-03] MED LIST changes: +NEURONTIN 300M300 M2 PO
[2020-12-03 09:51] VITALS: BP 149/87
== END | disposition home or self-care (01) ==
LOC: SPEC 09:27
PROVIDERS: ATTEND Radiology Diagnostic Radiology
DX: Z45.2 Encounter for adjustment and management of vascular access device (principal); C50.912 Malignant neoplasm of unspecified site of left female breast; Z98.890 Other specified postprocedural states; Z79.899 Other long term (current) drug therapy; Z85.3 Personal history of malignant neoplasm of breast; Z88.8 Allergy status to other drugs, medicaments and biological substances

== ENCOUNTER → 2021-02-25 | Outpatient (CLI) | payer OTHER | LOC: PET 08:48 | PROVIDERS: ATTEND Internal Medicine Hematology & Oncology | DX: C50.211 Malignant neoplasm of upper-inner quadrant of right female breast (principal) ==

== ENCOUNTER 2021-03-06 18:04 | Emergency (ER) | payer OTHER ==
[~2021-03-06] VITALS: Ht 175.3 cm; Wt 75.3 kg
[2021-03-06 20:58] LABS: ABSOLUTE NEUTROPHILS 3.5 thou/uL (1.4-8.2); BASOPHILS 0.7 % (0.0-2.0); EOSINOPHILS 0.3 % (0.0-3.0); HEMATOCRIT 37.3 % (37.0-47.0); HEMOGLOBIN 12.8 gm/dL (12.0-15.0); LYMPHOCYTES 29.8 % (24.0-44.0); MCHC 34.2 g/dL (28.0-37.0); MCV 90.4 fL (80.0-100.0); MONOCYTES 5.8 % (1.0-8.0); PLATELET COUNT 314 thou/uL (150-400); POLYS 63.4 % (36.0-66.0); RBC 4.12 mil/uL (4.20-5.00); WBC 5.6 thou/uL (4.0-11.0)
[2021-03-06 21:06] LABS: ANION GAP 12 mmol/L (7-16); BUN 13 mg/dL (7-18); CALCIUM 8.7 mg/dL (8.5-10.1); CHLORIDE 105 mmol/L (98-107); CO2 26 mmol/L (21-32); CREATININE 0.9 mg/dL (0.6-1.0); GLUCOSE 92 mg/dL (74-106); POTASSIUM 3.4 mmol/L (3.5-5.1); SODIUM 143 mmol/L (136-145)
[2021-03-06 21:12] LABS: ALBUMIN 4.3 g/dL (3.4-5.0); SGOT 23 U/L (15-37); SGPT 25 U/L (14-59); TOTAL BILIRUBIN 0.5 mg/dL (0.2-1.0); TROPONIN-I <0.06 ng/mL (<0.06)
[2021-03-06 22:40] VITALS: BP 127/90
--- NOTE | 2021-03-07 14:00 | EKG ---
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1975 Requested By: Johanna Felder Order Number: [id number] MD: Galen [place] Measurements Intervals [place] Rate: 104 P: 64 MT: 143 QRS: 52 QRSD: 62 T: -44 QT: 466 QTc: 613 Interpretive Statements Sinus tachycardia Borderline repolarization abnormality Prolonged QT interval Compared to ECG 04/22/2020 15:32:39 Prolonged QT interval now present Sinus rhythm no longer present T-wave abnormality no longer present Electronically Signed On 03-07-2021 14:00:43 CDT by Galen [place] [email or web address] <ELECTRONICALLY SIGNED> By: Galen [place] MD 03/07/21 1400 1838 1838 MD CLEMENTINE Santacruz
== END 2021-03-06 22:46 | disposition home or self-care (01) ==
LOC: ER 18:04
PROVIDERS: Nurse Practitioner Family
DX: R06.00 Dyspnea, unspecified (principal); Z79.899 Other long term (current) drug therapy; Z91.09 Other allergy status, other than to drugs and biological substances

== ENCOUNTER → 2021-05-23 | Outpatient (CLI) | payer OTHER | LOC: PET 09:03 | PROVIDERS: ATTEND Internal Medicine | DX: C50.211 Malignant neoplasm of upper-inner quadrant of right female breast (principal); C77.1 Secondary and unspecified malignant neoplasm of intrathoracic lymph nodes; J98.11 Atelectasis; J90 Pleural effusion, not elsewhere classified ==

== ENCOUNTER → 2021-05-29 | Outpatient (CLI) | payer OTHER ==
[2021-05-29 09:58] LABS: ABSOLUTE NEUTROPHILS 4.3 thou/uL (1.4-8.2); BASOPHILS 0.8 % (0.0-2.0); EOSINOPHILS 4.1 % (0.0-3.0); HEMATOCRIT 43.1 % (37.0-47.0); HEMOGLOBIN 14.1 gm/dL (12.0-15.0); LYMPHOCYTES 28.4 % (24.0-44.0); MCH 29.9 pg (26.0-34.0); MCHC 32.8 g/dL (28.0-37.0); MCV 91.2 fL (80.0-100.0); MONOCYTES 6.8 % (1.0-8.0); PLATELET COUNT 290 thou/uL (150-400); POLYS 59.9 % (36.0-66.0); RBC 4.72 mil/uL (4.20-5.00); RDW 13.3 % (10.5-14.5); WBC 7.1 thou/uL (4.0-11.0)
[2021-05-29 10:33] LABS: ALBUMIN 3.6 g/dL (3.4-5.0); CALCIUM 8.3 mg/dL (8.5-10.1); CREATININE 0.7 mg/dL (0.6-1.0); MAGNESIUM 2.1 mg/dL (1.8-2.4); PHOSPHORUS 4.2 mg/dL (2.5-4.9); TOTAL BILIRUBIN 0.3 mg/dL (0.2-1.0); TOTAL PROTEIN 6.7 g/dL (6.4-8.2)
[2021-05-29 10:35] LABS: POTASSIUM 4.1 mmol/L (3.5-5.1)
== END ==
LOC: LAB 09:20
PROVIDERS: ATTEND Internal Medicine
DX: C50.211 Malignant neoplasm of upper-inner quadrant of right female breast (principal)

== ENCOUNTER → 2021-06-05 | Outpatient (CLI) | payer OTHER ==
[2021-06-05 10:28] LABS: ABSOLUTE NEUTROPHILS 2.3 thou/uL (1.4-8.2); BASOPHILS 1.1 % (0.0-2.0); EOSINOPHILS 5.2 % (0.0-3.0); HEMOGLOBIN 12.7 gm/dL (12.0-15.0); LYMPHOCYTES 33.9 % (24.0-44.0); MCH 30.2 pg (26.0-34.0); MCHC 33.3 g/dL (28.0-37.0); MCV 90.6 fL (80.0-100.0); MONOCYTES 5.2 % (1.0-8.0); PLATELET COUNT 281 thou/uL (150-400); POLYS 54.6 % (36.0-66.0); RDW 13.3 % (10.5-14.5); WBC 4.3 thou/uL (4.0-11.0)
[2021-06-05 10:46] LABS: ALBUMIN 3.4 g/dL (3.4-5.0); CALCIUM 8.3 mg/dL (8.5-10.1); CREATININE 0.7 mg/dL (0.6-1.0); MAGNESIUM 2.3 mg/dL (1.8-2.4); PHOSPHORUS 3.3 mg/dL (2.5-4.9); POTASSIUM 4.1 mmol/L (3.5-5.1); TOTAL BILIRUBIN 0.3 mg/dL (0.2-1.0); TOTAL PROTEIN 6.2 g/dL (6.4-8.2)
== END ==
LOC: LAB 09:59
PROVIDERS: ATTEND Internal Medicine
DX: C50.211 Malignant neoplasm of upper-inner quadrant of right female breast (principal); R53.83 Other fatigue

== ENCOUNTER → 2021-06-12 | Outpatient (CLI) | payer OTHER ==
[2021-06-12 10:18] LABS: ABSOLUTE NEUTROPHILS 2.1 thou/uL (1.4-8.2); BASOPHILS 0.9 % (0.0-2.0); EOSINOPHILS 4.5 % (0.0-3.0); HEMATOCRIT 38.4 % (37.0-47.0); HEMOGLOBIN 13.1 gm/dL (12.0-15.0); LYMPHOCYTES 35.2 % (24.0-44.0); MCH 30.5 pg (26.0-34.0); MCHC 34.2 g/dL (28.0-37.0); MCV 88.9 fL (80.0-100.0); MONOCYTES 6.6 % (1.0-8.0); PLATELET COUNT 305 thou/uL (150-400); POLYS 52.8 % (36.0-66.0); RBC 4.31 mil/uL (4.20-5.00); RDW 12.8 % (10.5-14.5); WBC 3.9 thou/uL (4.0-11.0)
[2021-06-12 10:34] LABS: ALBUMIN 3.9 g/dL (3.4-5.0); CALCIUM 8.8 mg/dL (8.5-10.1); CREATININE 0.7 mg/dL (0.6-1.0); MAGNESIUM 2.3 mg/dL (1.8-2.4); PHOSPHORUS 3.7 mg/dL (2.6-4.7); POTASSIUM 3.7 mmol/L (3.5-5.1); TOTAL BILIRUBIN 0.5 mg/dL (0.2-1.0)
== END ==
LOC: LAB 09:23
PROVIDERS: ATTEND Internal Medicine
DX: C50.211 Malignant neoplasm of upper-inner quadrant of right female breast (principal)

== ENCOUNTER → 2021-07-03 | Outpatient (CLI) | payer OTHER ==
[2021-07-03 09:37] LABS: ABSOLUTE NEUTROPHILS 4.1 thou/uL (1.4-8.2); BASOPHILS 0.8 % (0.0-2.0); EOSINOPHILS 3.2 % (0.0-3.0); HEMATOCRIT 44.6 % (37.0-47.0); HEMOGLOBIN 14.5 gm/dL (12.0-15.0); LYMPHOCYTES 31.2 % (24.0-44.0); MCH 29.4 pg (26.0-34.0); MCHC 32.6 g/dL (28.0-37.0); MCV 90.1 fL (80.0-100.0); MONOCYTES 10.3 % (1.0-8.0); PLATELET COUNT 284 thou/uL (150-400); POLYS 54.5 % (36.0-66.0); RBC 4.95 mil/uL (4.20-5.00); RDW 13.4 % (10.5-14.5); WBC 7.5 thou/uL (4.0-11.0)
[2021-07-03 09:55] LABS: ALBUMIN 3.9 g/dL (3.4-5.0); CALCIUM 8.8 mg/dL (8.5-10.1); CREATININE 0.9 mg/dL (0.6-1.0); PHOSPHORUS 3.8 mg/dL (2.6-4.7); TOTAL BILIRUBIN 0.3 mg/dL (0.2-1.0); TOTAL PROTEIN 7.2 g/dL (6.4-8.2)
== END ==
LOC: LAB 08:56
PROVIDERS: ATTEND Internal Medicine
DX: E11.65 Type 2 diabetes mellitus with hyperglycemia (principal); I10 Essential (primary) hypertension; E78.5 Hyperlipidemia, unspecified

== ENCOUNTER → 2021-07-10 | Outpatient (CLI) | payer OTHER ==
[2021-07-10 09:48] LABS: ABSOLUTE NEUTROPHILS 3.1 thou/uL (1.4-8.2); EOSINOPHILS 4.3 % (0.0-3.0); HEMOGLOBIN 13.1 gm/dL (12.0-15.0); LYMPHOCYTES 37.6 % (24.0-44.0); MCH 29.7 pg (26.0-34.0); MCHC 33.5 g/dL (28.0-37.0); MCV 88.7 fL (80.0-100.0); PLATELET COUNT 279 thou/uL (150-400); POLYS 52.1 % (36.0-66.0); WBC 5.9 thou/uL (4.0-11.0)
[2021-07-10 10:06] LABS: ALBUMIN 3.3 g/dL (3.4-5.0); CALCIUM 8.4 mg/dL (8.5-10.1); CREATININE 0.8 mg/dL (0.6-1.0); MAGNESIUM 1.9 mg/dL (1.8-2.4); PHOSPHORUS 3.5 mg/dL (2.5-4.9); POTASSIUM 3.8 mmol/L (3.5-5.1); TOTAL BILIRUBIN 0.3 mg/dL (0.2-1.0); TOTAL PROTEIN 6.3 g/dL (6.4-8.2)
== END ==
LOC: LAB 09:05
PROVIDERS: ATTEND Internal Medicine
DX: C50.211 Malignant neoplasm of upper-inner quadrant of right female breast (principal)

== ENCOUNTER → 2021-07-17 | Outpatient (CLI) | payer OTHER | LOC: LAB 11:12 | PROVIDERS: ATTEND Hospitalist | DX: Z02.1 Encounter for pre-employment examination (principal); Z20.822 Contact with and (suspected) exposure to COVID-19 ==

== ENCOUNTER → 2021-07-17 | Outpatient (CLI) | payer OTHER ==
[2021-07-17 10:08] LABS: BASOPHILS 0.7 % (0.0-2.0); EOSINOPHILS 1.9 % (0.0-3.0); HEMATOCRIT 39.5 % (37.0-47.0); HEMOGLOBIN 13.3 gm/dL (12.0-15.0); LYMPHOCYTES 24.5 % (24.0-44.0); MCH 29.9 pg (26.0-34.0); MCHC 33.7 g/dL (28.0-37.0); MCV 88.7 fL (80.0-100.0); MONOCYTES 7.8 % (1.0-8.0); PLATELET COUNT 337 thou/uL (150-400); POLYS 65.1 % (36.0-66.0); RBC 4.45 mil/uL (4.20-5.00); RDW 13.6 % (10.5-14.5); WBC 4.6 thou/uL (4.0-11.0)
[2021-07-17 10:23] LABS: ALBUMIN 4.1 g/dL (3.4-5.0); CALCIUM 8.9 mg/dL (8.5-10.1); CREATININE 0.8 mg/dL (0.6-1.0); MAGNESIUM 1.8 mg/dL (1.8-2.4); PHOSPHORUS 3.3 mg/dL (2.6-4.7); POTASSIUM 4.1 mmol/L (3.5-5.1); TOTAL BILIRUBIN 0.6 mg/dL (0.2-1.0); TOTAL PROTEIN 7.3 g/dL (6.4-8.2)
== END ==
LOC: LAB 09:47
PROVIDERS: ATTEND Internal Medicine
DX: C50.211 Malignant neoplasm of upper-inner quadrant of right female breast (principal)

== ENCOUNTER → 2021-07-22 | Outpatient (CLI) | payer OTHER | LOC: CAT 08:19 | PROVIDERS: ATTEND Internal Medicine | DX: C50.211 Malignant neoplasm of upper-inner quadrant of right female breast (principal); R22.1 Localized swelling, mass and lump, neck ==

== ENCOUNTER → 2021-08-12 | Outpatient (CLI) | payer OTHER ==
[2021-08-12 09:16] LABS: BASOPHILS 0.6 % (0.0-2.0); HEMATOCRIT 39.8 % (37.0-47.0); HEMOGLOBIN 14.1 gm/dL (12.0-15.0); LYMPHOCYTES 29.1 % (24.0-44.0); MCH 30.7 pg (26.0-34.0); MCHC 35.5 g/dL (28.0-37.0); MCV 86.5 fL (80.0-100.0); MONOCYTES 6.2 % (1.0-8.0); PLATELET COUNT 263 thou/uL (150-400); POLYS 61.1 % (36.0-66.0); WBC 8.2 thou/uL (4.0-11.0)
[2021-08-12 09:30] LABS: ALBUMIN 3.9 g/dL (3.4-5.0); CALCIUM 8.8 mg/dL (8.5-10.1); CREATININE 0.8 mg/dL (0.6-1.0); MAGNESIUM 2.1 mg/dL (1.8-2.4); POTASSIUM 3.8 mmol/L (3.5-5.1); TOTAL BILIRUBIN 0.4 mg/dL (0.2-1.0); TOTAL PROTEIN 6.9 g/dL (6.4-8.2)
== END ==
LOC: LAB 08:36
PROVIDERS: ATTEND Internal Medicine
DX: C50.211 Malignant neoplasm of upper-inner quadrant of right female breast (principal)

== ENCOUNTER → 2021-08-15 | Outpatient (CLI) | payer OTHER | LOC: MRI 12:14 | PROVIDERS: ATTEND Internal Medicine | DX: C50.211 Malignant neoplasm of upper-inner quadrant of right female breast (principal); R42 Dizziness and giddiness ==

== ENCOUNTER → 2021-08-19 | Outpatient (CLI) | payer OTHER ==
[2021-08-19 09:41] LABS: ABSOLUTE NEUTROPHILS 7.1 thou/uL (1.4-8.2); HEMATOCRIT 38.5 % (37.0-47.0); HEMOGLOBIN 13.1 gm/dL (12.0-15.0); LYMPHOCYTES 16.7 % (24.0-44.0); MCH 29.4 pg (26.0-34.0); MCHC 34.1 g/dL (28.0-37.0); MCV 86.1 fL (80.0-100.0); MONOCYTES 3.6 % (1.0-8.0); PLATELET COUNT 324 thou/uL (150-400); POLYS 79.7 % (36.0-66.0); RBC 4.47 mil/uL (4.20-5.00); RDW 14.2 % (10.5-14.5); WBC 8.9 thou/uL (4.0-11.0)
[2021-08-19 09:57] LABS: CALCIUM 8.7 mg/dL (8.5-10.1); CREATININE 0.8 mg/dL (0.6-1.0); POTASSIUM 3.4 mmol/L (3.5-5.1)
[2021-08-19 10:03] LABS: ALBUMIN 3.7 g/dL (3.4-5.0); MAGNESIUM 2.5 mg/dL (1.8-2.4); PHOSPHORUS 3.2 mg/dL (2.6-4.7); TOTAL BILIRUBIN 0.5 mg/dL (0.2-1.0); TOTAL PROTEIN 6.7 g/dL (6.4-8.2)
== END ==
LOC: LAB 08:59
PROVIDERS: ATTEND Internal Medicine
DX: C50.211 Malignant neoplasm of upper-inner quadrant of right female breast (principal)

== ENCOUNTER → 2021-09-01 | Outpatient (CLI) | payer OTHER ==
[2021-09-01 14:21] LABS: HEMATOCRIT 42.1 % (37.0-47.0); MCH 29.4 pg (26.0-34.0); MCHC 33.2 g/dL (28.0-37.0); MCV 88.4 fL (80.0-100.0); PLATELET COUNT 196 thou/uL (150-400); RBC 4.76 mil/uL (4.20-5.00); RDW 14.8 % (10.5-14.5); WBC 19.6 thou/uL (4.0-11.0)
[2021-09-01 14:41] LABS: ALBUMIN 3.9 g/dL (3.4-5.0); CALCIUM 8.6 mg/dL (8.5-10.1); CREATININE 0.8 mg/dL (0.6-1.0); MAGNESIUM 2.6 mg/dL (1.8-2.4); PHOSPHORUS 3.6 mg/dL (2.6-4.7); POTASSIUM 3.8 mmol/L (3.5-5.1); TOTAL BILIRUBIN 0.8 mg/dL (0.2-1.0); TOTAL PROTEIN 6.5 g/dL (6.4-8.2)
== END ==
LOC: LAB 13:34
PROVIDERS: ATTEND Internal Medicine
DX: C50.211 Malignant neoplasm of upper-inner quadrant of right female breast (principal); C79.31 Secondary malignant neoplasm of brain

== ENCOUNTER → 2021-09-09 | Outpatient (CLI) | payer OTHER ==
[2021-09-09 09:37] LABS: HEMATOCRIT 37.4 % (37.0-47.0); HEMOGLOBIN 12.8 gm/dL (12.0-15.0); MCH 30.1 pg (26.0-34.0); MCHC 34.3 g/dL (28.0-37.0); MCV 87.8 fL (80.0-100.0); PLATELET COUNT 213 thou/uL (150-400); RBC 4.26 mil/uL (4.20-5.00); WBC 6.5 thou/uL (4.0-11.0)
[2021-09-09 09:49] LABS: CALCIUM 9.2 mg/dL (8.5-10.1); CREATININE 0.8 mg/dL (0.6-1.0)
[2021-09-09 09:55] LABS: ALBUMIN 3.9 g/dL (3.4-5.0); MAGNESIUM 2.3 mg/dL (1.8-2.4); PHOSPHORUS 2.5 mg/dL (2.6-4.7); TOTAL BILIRUBIN 0.6 mg/dL (0.2-1.0); TOTAL PROTEIN 6.5 g/dL (6.4-8.2)
[2021-09-09 10:07] LABS: ABSOLUTE NEUTROPHILS 5.7 thou/uL (1.4-8.2)
== END ==
LOC: LAB 09:04
PROVIDERS: ATTEND Internal Medicine
DX: C50.211 Malignant neoplasm of upper-inner quadrant of right female breast (principal)